=== PATIENT | male | born 2000 | race Caucasian/White ===

== ENCOUNTER 2019-09-25 11:08 | Emergency (ER) | payer OTHER ==
[~2019-09-25] VITALS: Ht 167.6 cm; Wt 62.1 kg
[~2019-09-25 11:08] MED LIST: CLARITIN10 MG PO; MOTRIN600 MG PO; NABUMETONE500 M1 PO
[2019-09-25 11:11] VITALS: BP 131/71
[2019-09-25] MEDS ORDERED: SEPTDS PO (12:28)
[2019-09-25] MEDS ORDERED: CEPHALEXIN500 M1 PO (12:28)
== END 2019-09-25 12:30 | disposition home or self-care (01) ==
LOC: ED 11:08
DX: L05.01 Pilonidal cyst with abscess (principal); Z88.1 Allergy status to other antibiotic agents

== ENCOUNTER → 2021-08-02 | Outpatient (CLI) | payer OTHER ==
[~2021-08-02] MED LIST changes: +CEPHALEXIN500 M1 PO; +SEPTDS PO
== END | disposition home or self-care (01) ==
LOC: COVID19 15:06
PROVIDERS: ATTEND Internal Medicine
DX: U07.1 COVID-19 (principal)

== ENCOUNTER 2022-09-23 04:59 | Emergency (ER) | payer SELFPAY ==
[~2022-09-23] VITALS: Ht 165.1 cm; Wt 61.2 kg
[2022-09-23 05:09] VITALS: BP 139/71
[2022-09-23] MEDS ORDERED: CLINDAMYCIN HC300 MG PO (05:31)
[2022-09-23] MEDS ORDERED: HYDROCODONE-AC1 EAC1 PO (05:31)
[2022-09-23] MEDS ORDERED: KETOROLAC10 MG PO (05:31)
== END 2022-09-23 05:51 | disposition home or self-care (01) ==
LOC: ED 04:59
DX: K04.7 Periapical abscess without sinus (principal); Z88.8 Allergy status to other drugs, medicaments and biological substances; F17.200 Nicotine dependence, unspecified, uncomplicated

== ENCOUNTER 2023-05-22 14:30 | Emergency (ER) | payer SELFPAY ==
[~2023-05-22] VITALS: Ht 177.8 cm; Wt 90.7 kg
[~2023-05-22 14:30] MED LIST changes: +CLINDAMYCIN HC300 MG PO; +HYDROCODONE-AC1 EAC1 PO; +KETOROLAC10 MG PO
[2023-05-22 15:01] VITALS: BP 157/88
[2023-05-22] MEDS ORDERED: CLEOCIN HCL300 MG PO (16:42)
== END 2023-05-22 17:08 | disposition home or self-care (01) ==
LOC: ED 14:30
DX: K02.9 Dental caries, unspecified (principal); R68.84 Jaw pain; H92.01 Otalgia, right ear; Z88.8 Allergy status to other drugs, medicaments and biological substances

== ENCOUNTER 2023-08-21 20:04 | Emergency (ER) | payer OTHER ==
[~2023-08-21] VITALS: Ht 162.5 cm; Wt 61.2 kg
[~2023-08-21 20:04] MED LIST changes: +CLEOCIN HCL300 MG PO
[2023-08-21 20:24] VITALS: BP 150/98
[2023-08-21] MEDS ORDERED: CLINDAMYCIN HC300 MG PO (20:43)
== END 2023-08-21 21:00 | disposition home or self-care (01) ==
LOC: ED 20:04
DX: K08.89 Other specified disorders of teeth and supporting structures (principal); Z88.0 Allergy status to penicillin; Z91.040 Latex allergy status; Z88.8 Allergy status to other drugs, medicaments and biological substances

== ENCOUNTER 2024-10-19 14:21 | Emergency (ER) | payer OTHER ==
[~2024-10-19] VITALS: Ht 165.1 cm; Wt 61.3 kg
[2024-10-19 14:32] VITALS: BP 123/85
[2024-10-19] MEDS ORDERED: Tdap Vaccine 0.5 ML SYR (Adult Vaccine) IM ONE (15:05)
[2024-10-19] MEDS ORDERED: DERMABOND 1 EA APPL T ONE (15:09)
== END 2024-10-19 15:28 | disposition home or self-care (01) ==
LOC: ED 14:21
DX: S01.112A Laceration without foreign body of left eyelid and periocular area, initial encounter (principal); Z88.0 Allergy status to penicillin; Z88.8 Allergy status to other drugs, medicaments and biological substances; Z91.040 Latex allergy status; Z87.891 Personal history of nicotine dependence; W22.8XXA Striking against or struck by other objects, initial encounter; Y93.89 Activity, other specified; Y92.89 Other specified places as the place of occurrence of the external cause; Y99.8 Other external cause status

== ENCOUNTER 2025-03-04 12:06 | Emergency (ER) | payer OTHER ==
[~2025-03-04] VITALS: Ht 177.8 cm; Wt 60.3 kg
[2025-03-04 12:26] VITALS: BP 132/80
[2025-03-04] MEDS ORDERED: Acetaminophen/Oxycodone 5 MG/325 MG TABLET PO ONE (12:30)
[2025-03-04] MEDS ORDERED: NAPROSYN500 MG PO (14:12)
== END 2025-03-04 14:21 | disposition home or self-care (01) ==
LOC: ED 12:06
DX: S00.83XA Contusion of other part of head, initial encounter (principal); Z79.899 Other long term (current) drug therapy; Z88.0 Allergy status to penicillin; Z88.8 Allergy status to other drugs, medicaments and biological substances; Z91.040 Latex allergy status; W01.0XXA Fall on same level from slipping, tripping and stumbling without subsequent striking against object, initial encounter; Y93.89 Activity, other specified; Y92.89 Other specified places as the place of occurrence of the external cause; Y99.8 Other external cause status